=== PATIENT | female | born 2005 | race Caucasian/White ===

== ENCOUNTER 2025-05-13 13:00 | Outpatient (CLI) | payer OTHER, SELFPAY ==
[2025-05-13 21:54] LABS: Alanine Aminotransferase* 15 U/L (4-35); Aspartate Amino Transferase* 30 U/L (12-35); Cholesterol* 164 mg/dL (90-199); HDL Cholesterol* 55 mg/dL (>=50); Triglycerides* 72 mg/dL (40-149)
== END 2025-05-13 13:01 | disposition home or self-care (01) ==
LOC: NPINS 13:01
PROVIDERS: Visit Provider Physician Assistant
DX: Z79.899 Other long term (current) drug therapy (principal)
CPT/HCPCS: 80061; 84450; 84460